=== PATIENT | female | born 2000 | race Two or more races ===

== ENCOUNTER 2021-07-23 21:02 | Outpatient (CLI) | payer OTHER | END 2021-07-24 09:35 | disposition home or self-care (01) | LOC: OBS/DEL 21:02 | PROVIDERS: ATTEND Obstetrics & Gynecology | DX: O26.892 Other specified pregnancy related conditions, second trimester (principal); M54.50 Low back pain, unspecified; Z3A.22 22 weeks gestation of pregnancy ==